=== PATIENT | female | born 1970 | race American Indian/Alaskan Native ===

== ENCOUNTER 2019-12-12 05:54 | Observation (INO) | payer BC ==
--- NOTE | 2019-12-11 14:43 | History and Physical Report ---
History of Present Illness Date of examination: 12/11/19 Date of admission: 12/12/2019 Chief complaint: complex hyperplasia History of present illness: 49y/o with findings of complex hyperplasia with atypia on endometrial biopsy after previously having an abnormal pap with atypical glandular cells. The patient reports having abnormal bleeding. Past History Past Medical History: hypertension, diabetes, other (breast mass) Past Surgical History: other (tubal ligation; thyroidectomy) Social history: - Obstetrical History : 3 Para: 2 Hx # Term Pregnancies: 2 Number of Pregnancies: 0 Spontaneous Abortions: 1 Induced : 0 Number of Living Children: 2 Medications and Allergies Allergies Allergy/AdvReac Type Severity Reaction Status Date / Time No Known Allergies Allergy Verified 12/11/19 15:21 Review of Systems All systems: negative Genitourinary: vaginal bleeding - Physical Exam Breasts: Positive: deferred Cardiovascular: Regular rate Lungs: Positive: Clear to auscultation Abdomen: Positive: normal appearance Results All other labs normal. Assessment and Plan - Patient Problems (1) Complex endometrial hyperplasia with atypia Status: Acute Plan to address problem: scheduled for robotic hysterectomy (2) Atypical glandular cell changes cervix of undetermined significance favor dysplasia Status: Acute
[~2019-12-12 05:54] MED LIST: ceFAZolin/Water 2 GM/20 ML 2 GM/20 ML SYRINGE IV NR
[2019-12-12] MEDS ORDERED: MAGNESIUM OXIDE 400 MG TAB PO SCH (06:00)
[2019-12-12] MEDS ORDERED: ceFAZolin/Water 2 GM/20 ML 2 GM/20 ML SYRINGE IV ONE (06:33)
[2019-12-12] MEDS ORDERED: BACTERIOSTATIC SODIUM CHLORIDE 0.9% 30 ML VIAL INFILTRATI ONE (06:33)
[2019-12-12] MEDS ORDERED: LACTATED RINGERS 1,000 ML IV SCH (07:00)
[2019-12-12] MEDS ORDERED: NEOMY 40 MG/POLYMYXIN B 200,000 UNITS/ML (GU) AMPULE IR ONE ×2 (07:21→09:23)
[2019-12-12] MEDS ORDERED: fentaNYL 100 MCG/2 ML INJ IV NR (07:32)
[2019-12-12] MEDS ORDERED: HYDROmorphone 1 MG/1 ML INJ IV PRN (07:32)
--- NOTE | 2019-12-12 07:37 | Anesthesia Consultation ---
Anesthesia Consult and Med Hx Date of service: 12/12/19 - Airway Anesthetic Teeth Evaluation: Good ROM Head & Neck: Adequate Mental/Hyoid Distance: Adequate Mallampati Class: Class II Intubation Access Assessment: Probably Good - Pulmonary Exam CTA: Yes - Cardiac Exam Cardiac Exam: RRR - Pre-Operative Health Status ASA Pre-Surgery Classification: ASA2 Proposed Anesthetic Plan: General Nerve Block: TAP - Pulmonary Hx Smoking: Yes (STOPPED X 10 YRS) Hx Respiratory Symptoms: No Hx Sleep Apnea: No (MISAEL PRE SCREEN HIGH RISK) - Cardiovascular System Hx Hypertension: Yes (took lisinopril this morning) Hx Heart Attack/AMI: No Hx Percutaneous Transluminal Coronary Angioplasty (PTCA): No - Central Nervous System CVA: No - Gastrointestinal Hx Gastroesophageal Reflux Disease: No - Endocrine Hx Renal Disease: No Hx Liver Disease: No Hx Non-Insulin Dependent Diabetes: Yes Hx Hypothyroidism: Yes - Other Systems Hx Obesity: Yes (BMI 39) - Additional Comments Anesthesia Medical History Comments: Hx PONV.
--- NOTE | 2019-12-12 07:37 | Anesthesia Day of Surgery ---
Anesthesia Day of Surgery - Day of Surgery Patient Examined: Yes Patient H&P Reviewed: Yes Patient is NPO: Yes
[2019-12-12 07:38] LABS: Hematocrit 39.4 % (30.3-42.9); Mean Corpuscular HGB Conc 33 % (30-34); Platelet Count 309 K/mm3 (140-440); Red Blood Count 5.79 M/mm3 (3.65-5.03); Red Cell Distribution Width 14.7 % (13.2-15.2)
[2019-12-12] MEDS ORDERED: dexAMETHasone 4 MG/ML VIAL ONE (07:49)
[2019-12-12] MEDS ORDERED: LIDOCAINE (1%) 10 MG/1 ML VIAL 20 ML MDV ONE (07:49)
[2019-12-12] MEDS ORDERED: BUPIVACAINE/PF (0.25%) 2.5 MG/ML 30 ML VIAL INFILTRATI ONE (07:49)
[2019-12-12 07:51] LABS: BUN/Creatinine Ratio 18; Blood Urea Nitrogen 9 mg/dL (7-17); Calcium 9.2 mg/dL (8.4-10.2); Hemolysis Index 37
[2019-12-12] MEDS ORDERED: MAGNESIUM OXIDE 400 MG TAB PO ONE (07:52)
[2019-12-12] MEDS ORDERED: GABAPENTIN 300 MG CAP ONE (07:52)
[2019-12-12 08:00] LABS: Mean Corpuscular Volume 68 fl (79-97)
[2019-12-12] MEDS ORDERED: SCOPOLAMINE TRANSDERMAL PATCH 72 HR TD NR (08:00)
[2019-12-12] MEDS ORDERED: CELECOXIB 200 MG CAP PO NR (08:00)
[2019-12-12] MEDS ORDERED: MIDAZOLAM 2 MG/2 ML INJ IV NR (08:00)
[2019-12-12] MEDS ORDERED: GABAPENTIN 300 MG CAP PO NR (08:00)
[2019-12-12] MEDS ORDERED: ACETAMINOPHEN 325 MG TAB PO PRN (08:02)
[2019-12-12] MEDS ORDERED: MORPHINE 4 MG/1 ML INJ IV PRN (08:02)
[2019-12-12] MEDS ORDERED: ONDANSETRON 4 MG/2 ML INJ IV PRN (08:02)
[2019-12-12] MEDS ORDERED: LIDOCAINE MPF (2%) 20 MG/1 ML VIAL 5 ML ONE (08:28)
[2019-12-12] MEDS ORDERED: ROCURONIUM 50 MG/5 ML INJ IV ONE (08:28)
[2019-12-12] MEDS ORDERED: ONDANSETRON 4 MG/2 ML INJ ONE (08:28)
[2019-12-12] MEDS ORDERED: propofoL 200 MG/20 ML VIAL IV ONE (08:29)
[2019-12-12] MEDS ORDERED: HYDROmorphone 1 MG/1 ML INJ ONE (08:29)
[2019-12-12 08:59] LABS: Basophils % (Manual) 0 % (0.0-1.8); Hypochromasia 1+; Platelet Estimate Consistent w Auto; Total Cells Counted 100
[2019-12-12] MEDS ORDERED: KETOROLAC 30 MG/1 ML INJ IV SCH (09:00)
[2019-12-12] MEDS ORDERED: D5W/LACTATED RINGERS 1,000 ML IV SCH (09:00)
[2019-12-12] MEDS ORDERED: SODIUM CHLORIDE 0.9% IRR 1,500 ML BOTTLE IR ONE (09:23)
[2019-12-12] MEDS ORDERED: SODIUM CHLORIDE 0.9% IRRIG SOLN 2000 ML IR ONE (09:24)
[2019-12-12] MEDS ORDERED: PHENYLEPHRINE/NS 1,000 MCG/10 ML SYRINGE (OR USE) IV ONE (09:31)
[2019-12-12] MEDS ORDERED: NEOSTIGMINE 10MG/10 ML INJ MDV ONE (09:42)
[2019-12-12] MEDS ORDERED: GLYCOPYRROLATE 0.4 MG/2 ML INJ ONE (09:42)
[2019-12-12] MEDS ORDERED: LACTATED RINGERS 1,000 ML ONE ×2 (09:52→10:25)
[2019-12-12] MEDS ORDERED: INSULIN LISPRO 100 UNIT/ML SUB-Q ONE ×2 (10:20→10:22)
[2019-12-12] MEDS ORDERED: INSULIN REGULAR, HUMAN 100 UNITS/1 ML ONE (11:15)
[2019-12-12] MEDS ORDERED: INSULIN REGULAR, HUMAN 100 UNITS/1 ML IV ONE (11:16)
[2019-12-12] MEDS ORDERED: IBUPROFEN 600 MG TAB PO SCH (12:00)
[2019-12-12] MEDS: oxyCODONE /ACETAMINOPHEN 5-325MG TAB PO PRN ×2 (13:20→18:41)
--- NOTE | 2019-12-12 15:46 | Operative Report ---
Operative Report Operative Report: Date of surgery: December 12, 2019 Preoperative diagnoses: Complex endometrial hyperplasia with atypia Postoperative diagnoses: Same as above Procedure: Robotic hysterectomy; bilateral salpingectomy Surgeon: Cindi Campos M.D. Patient Service Representative: Ashley Khanna Anesthesia: Gen. endotracheal anesthesia Estimated blood loss: 100 mL Pathology: Uterus, cervix, bilateral fallopian tubes Indication: 49-year-old -0-1-2 with a history of abnormal uterine bleeding and was found to have findings of complex endometrial hyperplasia with atypia. Procedure: The patient was taken to the operating room and given general endotracheal anesthesia without complication. She is prepped and draped in a normal sterile fashion. A bivalve speculum was placed in the patient's vagina and a single- tooth tenaculum placed on the anterior lip of the cervix. The uterus was sounded with the uterine sound. A V [employer] uterine manipulator was placed in the bivalve speculum was then removed. Attention was then turned to the patient's abdomen where a millimeter supra umbilical skin incision was then made. A V eress needle was placed and peritoneal entry was verified water-filled syringe. Insufflation of the peritoneal cavity was performed with CO2 gas. The 12 mm trocar was then placed under direct visualization. An additional 8 mm trocar was placed on the patient's left and right lateral side just opposite of the supraumbilical trocar. An additional 5 mm right lateral trocar was then placed as the accessory port. The patient was then placed in steep Trendelenburg. The da Shante robot was then engaged. General survey of the abdomen pelvis revealed a mildly enlarged uterus with normal tubes and ovaries bilaterally. A fenestrated forcep was placed in arm 2 and a vessel sealer was placed in arm 1. The surgeon then transferred to the surgical console. The mesosalpinx was then isolated on the right. The vessel sealer was used to coagulate the mesosalpinx which was then transected. The tube was transected from the ovary. The tubo- ovarian ligament was then coagulated and transected. The round ligament was then coagulated and transected also. The vesicouterine peritoneum was then entered from the patient's right side. The uterine vessels were then coagulated with the vessel sealer. The vessels were then transected . Attention was then turned to the patient's left side where the tubo-ovarian ligament and mesosalpinx were again isolated coagulated and transected. The vesical peritoneum was then entered from the left and joined in the midline. Peritoneum was reflected off of the lower uterine segment. Uterine vessels were then coagulated and then transected. The blood supply to the uterus was adequately contained, a posterior colpotomy was made. The V care ring was visualized. Posterior colpotomy was created with the monopolar scissors. The incision was continued circumferentially until anterior colpotomy was made. The cervix and uterus were amputated from the vaginal cuff. The uterus was then removed along with the tubes bilaterally through the vagina and a warm laparotomy sponge was placed and maintain the pneumoperitoneum. The vaginal cuff was then closed in a running fashion with V lock suture. Irrigation of the pelvis was performed. Hemoblast was applied to the incision. The supraumbilical 12 mm trocar site was closed with the [employer] K[employer] device. The skin was then reapproximated with 4-0 Monocryl. The tissue was sent to pathology which included the cervix, bilateral tubes and uterus. The patient was then successfully extubated. She was then taken to the recovery room in stable condition. All sponge laps and needle counts were correct x2.
--- NOTE | 2019-12-12 15:48 | Discharge Summary ---
Providers - Providers Date of Admission: 12/12/19 08:02 Date of discharge: 12/12/19 Attending physician: GALINA ZAMUDIO Primary care physician: DONELL YEH Hospitalization Reason for admission: other (Complex endometrial hyperplasia) Procedure: other (Robotic hysterectomy and bilateral salpingectomy) Discharge diagnosis: other (Complex endometrial hyperplasia) Hospital course: The patient was admitted the day of surgery and underwent a robotic hysterectomy and bilateral salpingectomy. Please see operative note for details of surgery. Postoperative course was uneventful. Condition at discharge: Good Disposition: DC-[id number] TO HOME OR SELFCARE - Discharge Diagnoses (1) Complex endometrial hyperplasia with atypia Status: Acute (2) Atypical glandular cell changes cervix of undetermined significance favor dysplasia Status: Acute Plan - Discharge Medications Prescriptions: Ibuprofen [Motrin] 800 mg PO Q8HR PRN #60 tablet PRN Reason: Pain, Mild (1-3) oxyCODONE /ACETAMINOPHEN [Percocet 5/325] 1 tab PO Q6HR PRN #30 tablet PRN Reason: Pain - Provider Discharge Summary Activity: no sex for 6 weeks, no heavy lifting 4 weeks, no strenuous exercise Diet: routine Instructions: routine Additional instructions: [] Smoking cessation referral if applicable(refer to patient education folder for contact #) [] Refer to [facility] Booklet Call your doctor immediately for: * Fever > 100.5 * Heavy vaginal bleeding ( >1 pad per hour) * Severe persistent headache * Shortness of breath * Reddened, hot, painful area to leg or breast * Drainage or odor from incision. * Keep incision clean and dry at all times and follow doctor's instructions regarding bathing/showering Schedule follow-up with Dr. Zamudio in 4 weeks - Follow up plan
[2019-12-12 18:58] VITALS: BP 126/79
== END 2019-12-12 19:11 | disposition home or self-care (01) ==
LOC: OR 05:54 → OB 08:02
PROVIDERS: ADMIT Obstetrics & Gynecology; ATTEND Obstetrics & Gynecology
DX: N85.02 Endometrial intraepithelial neoplasia [EIN] (principal); R87.628 Other abnormal cytological findings on specimens from vagina; I10 Essential (primary) hypertension; E11.9 Type 2 diabetes mellitus without complications; Z98.51 Tubal ligation status; Z90.89 Acquired absence of other organs
CPT/HCPCS: 36415; 58571; 64450; 80048; 81025; 82962; 85007; 85025; 86850; 86900; 86901; 88302; 88304; 88309; 88342; 96372; 96374; 96375; A4217; G0378; J0690; J1100; J1170; J1885; J2250; J2370; J2405; J2704; J2710; J3010; J7120; J7121; S2900; 88305; 88341; J1815